=== PATIENT | female | born 1975 | race Hispanic/Latino ===

== ENCOUNTER 2017-05-26 16:48 | Emergency (ER) | payer OTHER ==
[~2017-05-26] VITALS: Ht 157.5 cm; Wt 62.7 kg
[2017-05-26 17:32] VITALS: BP 133/82; PULSE 59; RESP 16; O2SAT 100
--- NOTE | 2017-05-26 18:48 | ED.REPORT ---
HPI-Abd Pain F 40 and Over Date of Service May 26, 2017 ED Provider: Dioni Meeks MD 41 y/o female with a hx of uterine fibroids presents to the ED complaining of abnormal vaginal bleeding for the last month. The pt has not had her period in the last 2 years but suddenly started getting it about 4 weeks ago, with significantly heavy bleeding in the past couple of days. Associated sx include lightheadedness, about 6 episodes of diarrhea every day for the last month and severe suprapubic pain, onset today. She denies vomiting, dysuria and chance of . The pt had a colonoscopy done recently which resulted normal. Nursing Notes Stated Complaint: SEVERE STOMACH CRAMPS, DIARRHEA Chief Complaint: Female Abdominal Pain Nursing Notes Reviewed: Yes Allergies: Coded Allergies: No Known Allergies (Unverified , 05/26/17) Scheduled Medroxyprogesterone Acetate (Provera) 10 Mg Tablet 10 MG PO DAILY Scheduled PRN Ondansetron ODT (Zofran ODT) 4 Mg Tablet 4 MG PO Q4H PRN PRN For Nausea General Time Seen by MD: 18:46 Chief Complaint Vaginal bleeding Hx Obtained From: Patient Arrived By: Walk-in Sudden in Onset?: Yes Onset Occurred: More than a week ago... (1 month) Symptom Duration: Since onset Progression since Onset: Gradually worsening Location: : Suprapubic Quality: Painful Radiation: : Does not radiate Severity: Current: Moderate Severity: Maximum: Severe Recent Healthcare: No recent doctor visit Similar Sx Previous: No Past Medical History Past Medical History Uterine fibroids Past Surgical History none reported Family History Sister has ovarian cancer Smoking History Never Smoker Social History Alcohol Use: "Social" Other Social History: Good social support Ambulatory Status Independent Review of Systems GI: Reports: Abdominal pain (suprapubic), Diarrhea, Denies: Vomiting Female: Reports: Vaginal bleeding - abnl, Denies: Dysuria Complete sys rev & neg: except as marked. Neurologic: Reports: Lightheaded Physical Exam Vital Signs Vital Signs (First) Date Time Temp Pulse Resp B/P Pulse Ox O2 Delivery O2 Flow Rate FiO2 05/26/17 17:32 36.5 59 16 133/82 100 Room Air Initial VS: Reviewed Head / Eyes: Atraumatic, Normocephalic Neck: Supple, Non-tender, Full range of motion Extremities: Vascular intact, Neuro intact, No swelling, No tenderness Skin: Warm, Dry, No cyanosis Neurologic: Alert, Oriented, Nonfocal General/Constitutional: Awake, Alert, No acute distress, Cooperative Respiratory / Chest: Atraumatic, Breath sounds NL, Breath sounds = bilat, No respiratory distress, No rales, No rhonchi, No wheezing Cardiovascular: Heart rate NL, Regular rhythm, Heart sounds NL, No gallop, No murmurs, No rubs Pulse: 50 laying down and 60 standing BP: 120 laying down and 130 standing Abdomen: Atraumatic, Soft, No guarding, No rebound Tenderness/Guarding/Rebound: Positive: Tender suprapubic Back: Atraumatic, Full range of motion, Painless range of motion Interpretation & Diagnostics Lab Results Interpretation Result Diagram: 05/26/170 05/26/17 1840 Test 05/26/17 18:40 05/26/17 18:50 White Blood Count 7.7th/mm3 (3.8-10.1) Red Blood Count 4.57mil/mm3 (3.90-5.20) Hemoglobin 12.0g/dL (12.0-15.6) Hematocrit 36.8% (35.0-46.0) Mean Corpuscular Volume 80.5fL (81-100) Mean Corpuscular Hemoglobin 26.3pg (27.0-35.0) Mean Corpuscular Hemoglobin Concent 32.6% (32.0-37.0) Red Cell Distribution Width 16.5% (12.3-15.4) Platelet Count 320bil/L (150-400) Neutrophils (%) (Auto) 49.2% (40-74) Lymphocytes (%) (Auto) 37.5% (14-46) Monocytes (%) (Auto) 10.2% (4-12) Eosinophils (%) (Auto) 2.6% (0-5) Basophils (%) (Auto) 0.5% (0-3) Sodium Level 138mEq/L (134-144) Potassium Level 3.9mEq/L (3.5-5.2) Chloride Level 101mEq/L (97-108) Carbon Dioxide Level 24mmol/L (18-29) Blood Urea Nitrogen 12mg/dL (6-24) Creatinine 0.51mg/dL (0.57-1.00) Estimat Glomerular Filtration Rate 189mL/min (>59) Glucose Level 90mg/dL (60-99) Calcium Level 9.5mg/dL (8.5-10.1) Total Bilirubin 0.6mg/dL (0.0-1.2) Aspartate Amino Transf (AST/SGOT) 24U/L (0-50) Alanine Aminotransferase (ALT/SGPT) 16U/L (0-32) Alkaline Phosphatase 74U/L (25-150) Total Protein 7.9g/dL (6.4-8.4) Albumin 4.9g/dL (3.4-5.0) Hold Warren Top Tube Received (Received) Hold Urine Received (Received) Re-Eval/Medical Decision Re-Evaluation/Progress : Time of Eval: 19:09 Re-Evaluation/Progress Note: Discussed lab results. diagnosis and plan to discharge. Pt understands and agrees with the plan. F/U instructions and RTER warning given. All questions addressed. Counseled Regarding: Diagnosis, Lab results, Need for follow-up, When/why to return to ED Discharge & Departure Primary Impression: Dysfunctional uterine bleeding Additional Impression: Diarrhea Diarrhea type: unspecified type Qualified Code: R19.7 - Diarrhea, unspecified Disposition: Home Discharge Condition All VS Reviewed: Yes Condition: Stable Patient Instructions: Chronic Diarrhea (ED), Dysfunctional Uterine Bleeding (ED ) Additional Instructions: Thank you for entrusting us with your care today. Your lab results were reassuring. We will get back to you with results of your stool test if abnormal. Take the medications as prescribed. Take Provera daily for 10 days. This should stop the bleeding dramatically. You may experience some nausea for which you could take ondansetron. Take 2 pills of loperamide (Imodium) for diarrhea and then one tab. after every episode until your symptoms resolve. Limit to 6 tablets per day. Follow up with the primary care at [facility] (information below) for further evaluation if needed. Return to the emergency department in case of persistent heavy bleeding, worsening diarrhea or any other new or worsening symptoms. The abnormal uterine bleeding needs further evaluation as does the chronic diarrhea. Please call Saturday to make an appointment for follow-up Referrals: Tiffanie Schultz MD Attestation Portions of this note were transcribed by Sekou Britton. I,, personally performed the history, physical exam and medical decision-making;I reviewed and confirmed the accuracy of the information in the transcribed note. Signed by Aroldo Szymanski. 05/26/17 22:41 copies to: Tiffanie Schultz MD, Kirk H MD May 26, 2017 18:48 Sekou Britton May 26, 2017 19:09
[2017-05-26 19:05] LABS: BASOPHILS % (AUTO) 0.5 % (0-3); EOSINOPHILS % (AUTO) 2.6 % (0-5); MONOCYTES % (AUTO) 10.2 % (4-12); Mean Corpuscular Hemoglobin 26.3 pg (27.0-35.0); Mean Corpuscular Volume 80.5 fL (81-100); NEUTROPHILS % (AUTO) 49.2 % (40-74); Platelet Count 320 bil/L (150-400)
[2017-05-26] MEDS ORDERED: MEDR10TA PO (19:15)
[2017-05-26] MEDS ORDERED: MedroxyPROGESTERone 5 mg Tablet PO ONE (19:15)
[2017-05-26] MEDS ORDERED: ONDA4TAB9 PO (19:15)
[2017-05-26 19:51] VITALS: BP 114/72; RESP 16; O2SAT 99
== END 2017-05-26 19:40 | disposition home or self-care (01) ==
LOC: SED 16:48
DX: N93.8 Other specified abnormal uterine and vaginal bleeding (principal); R19.7 Diarrhea, unspecified

== ENCOUNTER 2017-06-10 18:05 | Emergency (ER) | payer OTHER ==
[~2017-06-10] VITALS: Ht 157.5 cm; Wt 64.5 kg
[~2017-06-10 18:05] MED LIST: MEDR10TA PO; ONDA4TAB9 PO
[2017-06-10 18:15] VITALS: BP 152/89; PULSE 69; RESP 20; O2SAT 100
[2017-06-10 18:56] LABS: BASOPHILS % (AUTO) 0.4 % (0-3); EOSINOPHILS % (AUTO) 1.9 % (0-5); MONOCYTES % (AUTO) 7.7 % (4-12); Mean Corpuscular Hemoglobin 25.9 pg (27.0-35.0); Mean Corpuscular Volume 80.8 fL (81-100); NEUTROPHILS % (AUTO) 48.6 % (40-74); Platelet Count 318 bil/L (150-400)
--- NOTE | 2017-06-10 19:38 | ED.REPORT ---
HPI-General Illness Date of Service Jun 10, 2017 ED Provider: Liu Cheung MD A 41 year old female with a history of uterine fibroids is referred to the ED from Urgent Care due to anemia. The pt has been experiencing heavy vaginal bleeding for approximately one month. She was seen in the ED on 05/26/2017 for this and was prescribed Provera for the bleeding, which did not resolve her symptoms. She was seen in the walk in clinic recently for a blood draw and was given iron supplements. The pt was called back today and informed that she was anemic and should be seen in the ED. The pt is currently going through four pads per day and is feeling fatigued. She denies chest pain, shortness of breath , lightheadedness or dizziness. She also denies history of abdominal surgery, previous or blood clots. The pt has as appointment with her CASEWORK SUPERVISOR in two days. Nursing Notes Stated Complaint: POSS TRANFUSION Chief Complaint: General Complaint Nursing Notes Reviewed: Yes Allergies: Coded Allergies: No Known Allergies (Unverified , 05/26/17) Scheduled Levonorgestrel/Ethinyl Estradiol (Marlissa) 1 Each Tablet 1 TABLET PO DAILY Medroxyprogesterone Acetate (Provera) 10 Mg Tablet 10 MG PO DAILY Scheduled PRN Ibuprofen (Ibuprofen) 800 Mg Tablet 800 MG PO TID PRN PRN For Pain Ondansetron ODT (Zofran ODT) 4 Mg Tablet 4 MG PO Q4H PRN PRN For Nausea General Time Seen by MD: 19:32 Chief Complaint Other (Anemia) Hx Obtained From: Patient Arrived By: Walk-in Sudden in Onset?: No Recent Healthcare: No recent hospitalization, Recent doctor visit Similar Sx Previous: No Past Medical History Past Medical History Uterine fibroids Past Surgical History none reported Family History Sister has ovarian cancer Smoking History Never Smoker Social History Alcohol Use: "Social" Other Social History: Good social support Ambulatory Status Independent Review of Systems Full Review of Systems Constitutional: Reports: Fatigue Respiratory: Denies: Non-productive cough, Shortness of breath Cardiovascular: Denies: Chest pain GI: Denies: Vomiting Female: Reports: Vaginal bleeding - abnl Musculoskeletal: Denies: Back pain, Neck pain Skin: Denies Rash Neurologic: Denies: Dizziness, Lightheaded Complete sys rev & neg: except as marked. Physical Exam Vital Signs Vital Signs Date Time Temp Pulse Resp B/P Pulse Ox O2 Delivery O2 Flow Rate FiO2 06/10/17 20:45 36.9 63 113/75 95 Room Air 06/10/17 18:15 36.9 69 20 152/89 100 Room Air Initial VS: Reviewed General/Constitutional: Awake, Alert Head / Eyes: Atraumatic, Normocephalic, PERRL, EOMI ENT: Atraumatic, Airway patent, Mucous membranes moist Neck: Atraumatic, Supple, Full range of motion Respiratory / Chest: Atraumatic, Breath sounds NL, Breath sounds = bilat, No respiratory distress Cardiovascular: Heart rate NL, Regular rhythm, Heart sounds NL Abdomen: Atraumatic, Soft, Non-tender, No guarding, No rebound Back: Atraumatic, Full range of motion Upper Extremities Upper Extremity / MS: Atraumatic, Full range of motion Lower Extremity / Pelvis / MS: Atraumatic, Full range of motion Skin: Atraumatic, Color NL, No rash, Warm, Dry Female Genitourinary: Exam deferred Neurologic: Oriented X3, Speech NL, No motor deficits, No sensory deficits Psychiatric: Affect NL, Mood NL Interpretation & Diagnostics Lab Results Interpretation Result Diagram: 06/10/172 06/10/17 1852 Test 06/10/17 18:52 06/10/17 20:34 White Blood Count 7.8th/mm3 (3.8-10.1) Red Blood Count 3.75mil/mm3 (3.90-5.20) Hemoglobin 9.7g/dL (12.0-15.6) Hematocrit 30.3% (35.0-46.0) Mean Corpuscular Volume 80.8fL (81-100) Mean Corpuscular Hemoglobin 25.9pg (27.0-35.0) Mean Corpuscular Hemoglobin Concent 32.0% (32.0-37.0) Red Cell Distribution Width 16.4% (12.3-15.4) Platelet Count 318bil/L (150-400) Neutrophils (%) (Auto) 48.6% (40-74) Lymphocytes (%) (Auto) 41.3% (14-46) Monocytes (%) (Auto) 7.7% (4-12) Eosinophils (%) (Auto) 1.9% (0-5) Basophils (%) (Auto) 0.4% (0-3) Sodium Level 141mEq/L (134-144) Potassium Level 3.9mEq/L (3.5-5.2) Chloride Level 104mEq/L (97-108) Carbon Dioxide Level 24mmol/L (18-29) Blood Urea Nitrogen 13mg/dL (6-24) Creatinine 0.63mg/dL (0.57-1.00) Estimat Glomerular Filtration Rate 148mL/min (>59) Glucose Level 121mg/dL (60-99) Calcium Level 9.1mg/dL (8.5-10.1) Total Bilirubin 0.3mg/dL (0.0-1.2) Aspartate Amino Transf (AST/SGOT) 19U/L (0-50) Alanine Aminotransferase (ALT/SGPT) 10U/L (0-32) Alkaline Phosphatase 69U/L (25-150) Total Protein 7.2g/dL (6.4-8.4) Albumin 4.5g/dL (3.4-5.0) Hold Urine Received (Received) Re-Eval/Medical Decision Med Decision/Clinical Course 41-year-old female history of dysfunctional uterine bleeding for 1 month sent in from urgent care for possible "blood transfusion." She does report mild fatigue otherwise is asymptomatic. Her ports she is going through 4 pads per day which is decreased. She was given Provera 2 weeks ago which she reports did not help. Her hemoglobin today is 9.7. There is no indication for transfusion. She is asymptomatic other than fatigue at this time. We will give her a prescription for OCP Marlissa which she will start in the morning and ibuprofen extra strength 3 times a day. He will follow up with her CASEWORK SUPERVISOR in 2 days as scheduled. Return precautions given. Source of Hx: Old records Time of Eval: 19:32 Patient Status: Condition improved Re-Evaluation/Progress Note: Pt informed of the diagnosis and plan for discharge during the initial interview. The pt understands and agrees with the plan. All questions are addressed at this time. Counseled Regarding: Diagnosis, Lab results, Need for follow-up, When/why to return to ED Discharge & Departure Primary Impression: Dysfunctional uterine bleeding Disposition: Home Discharge Condition All VS Reviewed: Yes Condition: Stable Additional Instructions: Thank you for allowing us to be part of your care. Your testing in the emergency department is reassuring and a transfusion is not necessary at this time. Take Marlissa as directed for the vaginal bleeding and one 800 mg ibuprofen every eight hours. Keep your follow up appointment with your OB.INFIR[facility] ATTENDANT this Saturday and call your primary care physician to arrange a follow up appointment this week. Return to the emergency department if you develop any new or worsening symptoms including increased bleeding, lightheadedness, dizziness, passing out, or any other symptoms of concern to you. Referrals: Omari Yadav DO (PCP) Scribe Attestation Portions of this note were transcribed by Puja Griffin. I, Dr. Cheung personally performed the history, physical exam and medical decision-making; I reviewed and confirmed the accuracy of the information in the transcribed note. copies to: Omari Yadav Ben M MD Jun 10, 2017 19:38 PUJA GRIFFIN Jun 10, 2017 19:55
[2017-06-10] MEDS ORDERED: IBUP800T28 PO (19:56)
[2017-06-10] MEDS ORDERED: LEVO1TAB71 PO (19:56)
[2017-06-10 20:45] VITALS: BP 113/75; PULSE 63; O2SAT 95
== END 2017-06-10 20:48 | disposition home or self-care (01) ==
LOC: SED 18:05
DX: N93.8 Other specified abnormal uterine and vaginal bleeding (principal); D25.9 Leiomyoma of uterus, unspecified